=== PATIENT | male | born 1995 | race African-American/Black ===

== ENCOUNTER 2017-05-23 21:13 | Emergency (ER) | payer MEDICAID ==
[~2017-05-23] VITALS: Ht 167.6 cm; Wt 70.3 kg
--- NOTE | 2017-05-23 21:13 | NUR ---
B [id number] FROM ([facility]. PER EMS, "PATIENT SAID HE SMOKES CRACK EVERYDAY." NO SOB NOTED AND NO C/O PAIN. VITALS STABLE AND NAD. PT STATES HE USES NEEDLES FOR INJECTION OF METH INTO "ONE OF MY MOLES". A/OX4 ABLE TO MAKE DECISIONS FOR CARE BUT SOMETIMES WILL NOT ANSWER QUESTIONS WHEN ASKED. WILL CONTINUE TO MONITOR FOR ANY CHANGES DURING THE SHIFT.
--- NOTE | 2017-05-23 21:32 | NUR ---
DEPUTIES AT BEDSIDE SPEAKING TO PT REGARDING WHY HE WAS BROUGHT IN
[2017-05-23 23:06] VITALS: BP 149/104
== END 2017-05-23 23:07 | disposition home or self-care (01) ==
LOC: ER 21:15
DX: F19.20 Other psychoactive substance dependence, uncomplicated (principal); F17.200 Nicotine dependence, unspecified, uncomplicated
CPT/HCPCS: 99283; A4606; Z7610